=== PATIENT | female | born 1990 | race Caucasian/White ===

== ENCOUNTER 2018-07-03 09:37 | Outpatient (CLI) | payer MEDICAID | END 2018-07-03 12:04 | disposition home or self-care (01) | LOC: OBT 09:37 → L-D 09:37 → OBT 12:04 | DX: O36.8330 Maternal care for abnormalities of the fetal heart rate or rhythm, third trimester, not applicable or unspecified (principal); O40.3XX0 Polyhydramnios, third trimester, not applicable or unspecified; O34.219 Maternal care for unspecified type scar from previous cesarean delivery; Z3A.37 37 weeks gestation of pregnancy | CPT/HCPCS: 76818 ==

== ENCOUNTER 2018-07-09 19:33 | Outpatient (CLI) | payer MEDICAID | END 2018-07-09 21:40 | disposition home or self-care (01) | LOC: OBT 19:33 → L-D 19:34 → OBT 21:40 | DX: O76 Abnormality in fetal heart rate and rhythm complicating labor and delivery (principal); O34.219 Maternal care for unspecified type scar from previous cesarean delivery; Z3A.38 38 weeks gestation of pregnancy | CPT/HCPCS: 76818 ==

== ENCOUNTER 2018-07-12 11:50 | Outpatient (CLI) | payer MEDICAID | END 2018-07-12 14:45 | disposition home or self-care (01) | LOC: OBT 11:50 → L-D 11:50 → OBT 14:45 | DX: O76 Abnormality in fetal heart rate and rhythm complicating labor and delivery (principal); Z3A.38 38 weeks gestation of pregnancy | CPT/HCPCS: 76818 ==

== ENCOUNTER 2018-07-14 07:22 | Inpatient (IN) | payer MEDICAID ==
[~2018-07-14 07:22] MED LIST: EPHEDrine SULFATE 50 MG/5 ML SYG
[2018-07-14] MEDS ORDERED: CARBOPROST 250 MCG INJ IM ×2 (08:00→11:00)
[2018-07-14] MEDS ORDERED: CEFAZOLIN 2 GM/50 ML (PMX) 50 ML IV (08:00)
[2018-07-14] MEDS ORDERED: OXYTOCIN 30 UNITS/LR 500 ML IV ×3 (08:00→11:00)
[2018-07-14] MEDS ORDERED: MISOPROSTOL 200 MCG TAB PR ×2 (08:00→11:00)
[2018-07-14] MEDS ORDERED: METHYLERGONOVINE 0.2 MG INJ IM ×2 (08:00→11:00)
[2018-07-14] MEDS: LACTATED RINGER'S 1,000 ML IV ×2 (08:29→09:54)
[2018-07-14] MEDS ORDERED: LACTATED RINGER'S 1,000 ML IV* (08:30)
[2018-07-14 08:47] LABS: HEMATOCRIT 38.4 % (37.0-47.0); HEMOGLOBIN 12.9 g/dl (12.0-16.0); MEAN CORPUSCULAR HEMOGLOBIN 30.1 pg (29.0-33.0); MEAN CORPUSCULAR HGB CONC 33.6 g/dl (32.0-37.0); MEAN CORPUSCULAR VOLUME 89.7 fl (82.0-101.0); MEAN PLATELET VOLUME 11.4 fl (7.4-10.4); PLATELET COUNT 137 10^3/UL (140-415); RED BLOOD COUNT 4.28 10^6/ul (4.20-5.40); RED CELL DISTRIBUTION WIDTH 13.2 % (11.5-14.5)
[2018-07-14 08:47] LABS: WHITE BLOOD COUNT 9.1 10^3/ul (4.8-10.8)
[2018-07-14 08:48] LABS: ADD MAN DIFF? YES; POSITIVE DIFF @See below
[2018-07-14 09:01] LABS: INR 0.86; PARTIAL THROMBOPLASTIN TIME 24.9 Sec (23.0-35.0); PROTIME 11.8 Sec (11.9-14.9); PT RATIO 0.9
[2018-07-14 09:03] LABS: BASOPHILS % 0.3 % (0.0-2.0); EOSINOPHILS # 0.1 10^3/ul (0.0-0.5); EOSINOPHILS % 1.3 % (0.0-7.0); LYMPHOCYTES # 2.7 10^3/ul (0.8-2.9); LYMPHOCYTES % 29.7 % (15.0-51.0); MONOCYTE # 0.8 10^3/ul (0.3-0.9); MONOCYTES % 8.3 % (0.0-11.0); NEUTROPHIL # 5.4 10^3/ul (1.6-7.5); NEUTROPHILS % 59.8 % (39.0-77.0)
[2018-07-14] MEDS ORDERED: BUPIVACAINE 0.75%/DEXT (SPINAL) 2 ML INJ (09:37)
[2018-07-14] MEDS ORDERED: morphine SULFATE/PF (10 MG/10 ML) INJ (09:38)
[2018-07-14 09:39] LABS: HEPATITIS B SURFACE ANTIGEN NEGATIVE (NEGATIVE)
[2018-07-14 09:39] LABS: ANISOCYTOSIS 1+ (0-0); BAND NEUTROPHILS #M 0.2 10^3/ul (0.0-0.6); BAND NEUTROPHILS % (M) 3 % (0-4); EOSINOPHILS % (M) 1 % (0-7); LYMPHOCYTES % (M) 34 % (15-51); MONOCYTE #M 0.4 10^3/ul (0.3-0.9); MONOCYTES % (M) 5 % (0-11); MYELOCYTES % (M) 1 % (0-0); PLATELET ESTIMATE DECREASED; POLYCHROMASIA 1+ (0-0); REACTIVE LYMPHOCYTES #M 0.2 10^3/ul (0.0-0.0); REACTIVE LYMPHOCYTES% (M) 3 % (0-0); SEG NEUT #M 4.8 10^3/ul (1.6-7.5); SEGMENTED NEUTROPHILS (M) % 53 % (39-77); SMUDGE%M 34 % (0-0)
[2018-07-14] MEDS ORDERED: PHENYLephrine (100 MCG/ML) 5ML SYG (09:49)
[2018-07-14] MEDS ORDERED: ONDANSETRON 4 MG INJ (09:51)
[2018-07-14] MEDS: ONDANSETRON 4 MG INJ IV ×3 (10:00→21:39)
[2018-07-14] MEDS ORDERED: HYDROmorphONE 0.5 MG/0.5 ML SYG IV ×2 (10:00)
[2018-07-14] MEDS ORDERED: EPHEDrine SULFATE 50 MG/5 ML SYG IV (10:00)
[2018-07-14] MEDS ORDERED: MEPERIDINE 25 MG INJ IV (10:00)
[2018-07-14] MEDS ORDERED: ONDANSETRON 4 MG INJ IV (10:00)
[2018-07-14] MEDS ORDERED: MIDAZOLAM 1 MG/ML 2 ML INJ IV (10:00)
[2018-07-14] MEDS ORDERED: DIPHENHYDRAMINE 50 MG INJ IV ×2 (10:00)
[2018-07-14] MEDS ORDERED: NALBUPHINE HCL (10 MG/1 ML) INJ IV (10:00)
[2018-07-14] MEDS ORDERED: NALOXONE (0.4 MG/ML) INJ IV (10:00)
[2018-07-14] MEDS ORDERED: ZOLPIDEM 5 MG TAB PO (10:00)
[2018-07-14] MEDS ORDERED: OXYTOCIN 10 UNIT INJ ×2 (10:14→10:38)
[2018-07-14] MEDS ORDERED: MIDAZOLAM 1 MG/ML 2 ML INJ (10:16)
[2018-07-14] MEDS: DEXTROSE 5%-LR 1,000 ML IV ×2 (10:58→18:58)
[2018-07-14] MEDS ORDERED: METHYLERGONOVINE 0.2 MG TAB PO (11:00)
[2018-07-14] MEDS: IBUPROFEN 800 MG TAB PO ×2 (14:00→21:43)
[2018-07-14] MEDS: OXYTOCIN 30 UNITS/LR 500 ML IV (14:57)
[2018-07-14 15:11] LABS: RAPID PLASMA REAGIN NONREACTIVE (NR)
[2018-07-14] MEDS: SENNA/DOCUSATE NA (8.6MG/50MG) TAB PO (21:00)
[2018-07-15] MEDS: DEXTROSE 5%-LR 1,000 ML IV ×2 (01:02→10:58)
[2018-07-15] MEDS: IBUPROFEN 800 MG TAB PO ×3 (06:00→21:58)
[2018-07-15 06:22] LABS: ADD MAN DIFF? NO
[2018-07-15 06:24] LABS: WHITE BLOOD COUNT 8.6 10^3/ul (4.8-10.8)
[2018-07-15 06:24] LABS: BASOPHILS % 0.2 % (0.0-2.0); EOSINOPHILS % 0.1 % (0.0-7.0); HEMATOCRIT 32.1 % (37.0-47.0); HEMOGLOBIN 10.6 g/dl (12.0-16.0); LYMPHOCYTES # 1.6 10^3/ul (0.8-2.9); LYMPHOCYTES % 18.7 % (15.0-51.0); MEAN CORPUSCULAR HEMOGLOBIN 30.3 pg (29.0-33.0); MEAN CORPUSCULAR VOLUME 91.7 fl (82.0-101.0); MEAN PLATELET VOLUME 11.3 fl (7.4-10.4); MONOCYTE # 0.7 10^3/ul (0.3-0.9); NEUTROPHIL # 6.3 10^3/ul (1.6-7.5); NEUTROPHILS % 72.5 % (39.0-77.0); PLATELET COUNT 131 10^3/UL (140-415); RED CELL DISTRIBUTION WIDTH 13.2 % (11.5-14.5)
[2018-07-15] MEDS: KETOROLAC 30 MG INJ IV (07:02)
[2018-07-15] MEDS ORDERED: HYDROCODONE/APAP (5/325) TAB PO (08:00)
[2018-07-15] MEDS: HYDROCODONE/APAP (5/325) TAB PO ×3 (08:00→21:59)
[2018-07-15] MEDS: SENNA/DOCUSATE NA (8.6MG/50MG) TAB PO ×2 (09:16→21:58)
[2018-07-16] MEDS: HYDROCODONE/APAP (5/325) TAB PO ×3 (05:40→22:00)
[2018-07-16] MEDS: IBUPROFEN 800 MG TAB PO ×3 (05:40→21:42)
[2018-07-16] MEDS: LANOLIN 7 GM TUBE TOP (09:26)
[2018-07-16] MEDS: SENNA/DOCUSATE NA (8.6MG/50MG) TAB PO ×2 (09:26→20:48)
[2018-07-17] MEDS: IBUPROFEN 800 MG TAB PO (05:40)
[2018-07-17] MEDS: HYDROCODONE/APAP (5/325) TAB PO (05:40)
[2018-07-17] MEDS: DIPHTH/TET/ACEL PERTUSS (ADULT) 0.5 ML VIAL IM* (07:50)
[2018-07-17] MEDS: MEASLES,MUMPS,RUBELLA VACCINE INJ SC* (07:51)
[2018-07-17] MEDS: SENNA/DOCUSATE NA (8.6MG/50MG) TAB PO (08:57)
== END 2018-07-17 12:25 | disposition home or self-care (01) | DRG 788 ==
LOC: L-D 07:22 → PP1 14:02
PROVIDERS: Obstetrics & Gynecology
PROC: 10D00Z1 Extraction of Products of Conception, Low, Open Approach (ICD-10-PCS; principal; 2018-07-14 09:00)
PROC: 3E033VJ Introduction of Other Hormone into Peripheral Vein, Percutaneous Approach (ICD-10-PCS; 2018-07-14 09:00)
DX: O34.211 Maternal care for low transverse scar from previous cesarean delivery (principal); Z3A.39 39 weeks gestation of pregnancy; Z37.0 Single live birth
CPT/HCPCS: 85025; 85610; 85730; 86592; 86850; 86900; 86901; 87340; 99464